=== PATIENT | male | born 1980 | race Two or more races ===

== ENCOUNTER 2024-09-21 20:02 | Emergency (ER) | payer OTHER ==
[~2024-09-21] VITALS: Ht 172.7 cm; Wt 68.0 kg
[2024-09-21 20:54] VITALS: BP 119/78; TEMP 98; O2SAT 98
== END 2024-09-21 20:55 | disposition home or self-care (01) ==
LOC: ER 20:07
DX: S62.336A Displaced fracture of neck of fifth metacarpal bone, right hand, initial encounter for closed fracture (principal); W22.8XXA Striking against or struck by other objects, initial encounter; Y93.89 Activity, other specified; Y92.89 Other specified places as the place of occurrence of the external cause; Y99.8 Other external cause status
CPT/HCPCS: 73130-TC